=== PATIENT | male | born 1970 | race Native Hawaiian/Other Pacific Islander ===

== ENCOUNTER 2017-03-28 10:02 | Outpatient (CLI) | payer BC | END 2017-03-28 19:26 | disposition home or self-care (01) | LOC: RAD 10:02 | DX: J40 Bronchitis, not specified as acute or chronic (principal) ==

== ENCOUNTER 2017-12-12 11:55 | Outpatient (CLI) | payer BC ==
[2017-12-12 12:10] LABS: PLATELET COUNT 192 K/uL (142-355)
[2017-12-12 12:31] LABS: POTASSIUM 4.6 mmol/L (3.6-5.2)
== END 2017-12-12 19:38 | disposition home or self-care (01) ==
LOC: LABW 11:55
PROVIDERS: Internal Medicine
DX: I10 Essential (primary) hypertension (principal); E29.1 Testicular hypofunction
CPT/HCPCS: 36415; 80053; 80061; 81000; 84154; 84403; 84443; 85027